=== PATIENT | female | born 1990 | race African-American/Black ===

== ENCOUNTER 2017-07-16 15:48 | Inpatient (IN) | payer MEDICAID ==
[2017-07-16] VITALS (57 sets, daily range): BP systolic 87–131; BP diastolic 50–88; PULSE 81–136; RESP 18–22; TEMP 98.1–98.6
[~2017-07-16] VITALS: Ht 172.7 cm; Wt 95.0 kg
[2017-07-16] MEDS ORDERED: PRENTAB7 (16:18)
--- NOTE | 2017-07-16 16:49 | PD ---
HPI Chief Complaint Elevated blood pressure, proteinuria Date Seen: Jul 16, 2017 Time Seen: 16:30 Travel History International Travel<30 Days: No Contact w/Intl Traveler<30Days: No Known Affected Area: No History of Present Illness HPI Patient is a 26-year-old at 38 weeks and 0 days who presents to the OB ED after being sent from Dr. Shaver office for elevated blood pressure and proteinuria. In Dr. Shaver office she had a systolic blood pressure in the 130s and "a lot" of protein in her urine. She reports that this has been uncomplicated without any elevated blood pressure and with only a few episodes of trace proteinuria. She reports that she is having occasional contractions. She reports that she does have some pink on the toilet paper when she wipes after going to the bathroom. She reports movement is at baseline. She denies any headache, blurry vision, nausea, vomiting, chest pain, shortness of breath, pain under her ribs. She reports that her feet are swelling slightly. She is GBS positive. History Past Medical History Medical History: Denies Significant Hx Obstetric History Obstetric History Patient reports that this is her first and it has been uncomplicated thus far. Per her records, her blood pressures have been normal throughout this and she has not had any protein in her urine until today when she had 3+ proteinuria and blood pressure of 136/78. She is GBS positive. Past Surgical History Surgical History: No Previous Surgery Family History Narrative Family History Her father has hypertension, heart disease, diabetes. Social History Narrative Social History Patient lives at home alone. She feels safe at home. Alcohol Use: No Tobacco Use: No Substance Abuse: No Allergies-Medications (Allergen,Severity, Reaction): Coded Allergies: No Known Allergies (Unverified , 07/16/17) Home Meds Reported Medications Pnv No.95/Ferrous Fum/Folic AC ( Vitamins Tablet) 28 Mg Iron-800 Mcg Tablet 07/16/17 Review of Systems General / Constitutional: No: Fever, Chills Eyes: No: Visual changes HENT: No: Headaches Cardiovascular: Edema (slight feet swelling), No: Chest Pain or Discomfort Respiratory: No: Short of Breath Gastrointestinal: No: Nausea, Vomiting, Abdominal Pain Genitourinary: No: Dysuria Musculoskeletal: Edema (slight feet swelling), No: Cramping, Pain Physical Exam Blood pressure 108/72, 120/68, 122/77 Pulse 115, 111, 136 Pain 0 out of 10 Narrative GENERAL: Well-nourished, well-developed patient. SKIN: Warm and dry. HEAD: Normocephalic and atraumatic. EYES: No scleral icterus. No injection or drainage. ENT: No nasal drainage noted. Mucous membranes pink. Airway patent. NECK: Supple, trachea midline. No JVD. CARDIOVASCULAR: Regular rate and rhythm without murmurs, gallops, or rubs. RESPIRATORY: Breath sounds equal bilaterally. No accessory muscle use. ABDOMEN/GI: Abdomen soft, non-tender, bowel sounds present, no rebound, no guarding Gravid to 38 weeks size GENITOURINARY: Exam performed by Dr. Barreto External Genitalia: Intact and normal in appearance Dilatation: 3-4 cm Effacement: 75-80% Station: -2 Uterine Contractions: About every minute, but irregularly FHT's: Category: Category 1 Baseline: 140 Reactive: Reactive Variability: Moderate Decels: none EXTREMITIES: No cyanosis or edema. BACK: Nontender without obvious deformity. No CVA tenderness. NEUROLOGICAL: Awake and alert. Motor and sensory grossly within normal limits. Five out of 5 muscle strength in all muscle groups. Normal speech. Data Data Vital Signs Reviewed: Yes Orders Orders Vital Signs (Adult) .ON ADMISSION (07/16/17 16:24) ^ Labor Status (07/16/17 16:24) Urinalysis - C+S If Indicated (07/16/17 16:24) ^ Non Stress Test (07/16/17 16:24) ^ Hydration (07/16/17 16:24) Cbc No Diff, Includes Plts (07/16/17 16:24) Comprehensive Metabolic Panel (07/16/17 16:24) Uric Acid (07/16/17 16:24) MDM Plan Patient is a 26-year-old at 38 weeks and 0 days who presents to the OB ED after being sent from Dr. Shaver office for elevated blood pressure and proteinuria. Per her records, her blood pressures have been normal throughout this and she has not had any protein in her urine until today when she had 3+ proteinuria and blood pressure of 136/78. She is GBS positive. Cervical exam: Dilatation: 3-4 cm, Effacement: 75-80%, Station: -2 1. Proteinuria in likely related to preeclampsia variant -Monitor vital signs -Monitor labor status/tocometry -Monitor heart tracing -CBC, CMP, uric acid, UA -Patient will likely need observation for 24 hour urine collection and/or possibly IV magnesium and induction of labor for preeclampsia d/w Dr. Barreto Diagnosis Diagnosis: Primary Impression: Proteinuria affecting in third trimester Additional Impression: preeclampsia variant Kevin Porter MD R2 Jul 16, 2017 16:49
[2017-07-16 17:40] LABS: BACTERIA, URINE FEW /hpf; BLOOD, URINE LARGE (NEG); GLUCOSE,URINE NEG (NEG); HEMATOCRIT 34.7 % (35.0-46.0); KETONE, URINE NEG (NEG); MEAN CELL VOLUME 68.4 FL (80.0-100.0); MEAN CORPUSCULAR HEMOGLOBIN 21.4 PG (27.0-34.0); MEAN CORPUSCULAR HGB CONC 31.2 % (32.0-36.0); MUCUS URINE MANY /lpf (OCC); NITRITE,URINE NEG (NEG); PLATELET COUNT 212 TH/MM3 (150-450); RED BLOOD COUNT 5.08 MIL/MM3 (4.00-5.30); RED CELL DISTRIBUTION WIDTH 18.9 % (11.6-17.2); TRANSITIONAL EPI CELLS, URINE 2 /hpf; WHITE BLOOD COUNT 8.3 TH/MM3 (4.0-11.0)
[2017-07-16 17:43] LABS: REVIEW FLAG FINAL
[2017-07-16] MEDS ORDERED: LIDOCAINE HCL 1% 50 ML VIAL INFIL PRN (17:45)
[2017-07-16] MEDS ORDERED: MINERAL OIL 10 ML VIAL TOPICAL PRN (17:45)
[2017-07-16] MEDS ORDERED: LIDOCAINE HCL 1% 50 ML VIAL I-DERMAL PRN (17:45)
[2017-07-16] MEDS ORDERED: OXYTOCIN 30 UNITS-500ML PREMIX 500 ML IV ONE (17:45)
[2017-07-16] MEDS ORDERED: LACTATED RINGER'S 1000 ML INJ 1,000 ML IV PRN (17:45)
[2017-07-16] MEDS ORDERED: SODIUM CHLORID 0.9% 500 ML INJ 500 ML OTHER PRN (17:45)
[2017-07-16] MEDS ORDERED: CITRIC ACID-SODIUM CITRATE LIQ 30 ML UDC PO SCH (17:45)
[2017-07-16 17:48] LABS: URINE COLOR LIGHT-RED (YELLW/STRAW)
[2017-07-16 17:49] LABS: COMMENT (UR) CATH-CULTURE IND; CULTURE IF INDICATED CATH CULTURE IND
[2017-07-16 17:58] LABS: ANION GAP 9 MEQ/L (5-15); AST (GOT) 20 U/L (15-37); BICARBONATE 21.6 MEQ/L (21.0-32.0); BLOOD UREA NITROGEN 10 MG/DL (7-18); CHLORIDE 105 MEQ/L (98-107); GLOMERULAR FILTRATION RATE 178 ML/MIN (>89); SODIUM (NA) 136 MEQ/L (136-145)
[2017-07-16] MEDS ORDERED: ONDANSETRON HCL 4 MG/2 ML VIAL IV PUSH PRN (18:00)
[2017-07-16] MEDS ORDERED: SODIUM CHLOR 0.9% 1000 ML INJ 1,000 ML OTHER PRN (18:00)
[2017-07-16] MEDS ORDERED: MAGNESIUM SULFATE 40 GM PREMIX 1,000 ML IV SCH (18:00)
[2017-07-16] MEDS ORDERED: PENICILLIN G POTASSIUM INJ 5,000,000 UNITS in SODIUM CHLORIDE 0.9% INJ 100 ML IV ONE (18:00)
[2017-07-16] MEDS ORDERED: LACTATED RINGER'S 1000 ML INJ 1,000 ML IV SCH (18:00)
[2017-07-16] MEDS ORDERED: MAGNESIUM SULFATE 4 GM PREMIX 100 ML IV ONE (18:00)
[2017-07-16 18:03] LABS: ALKALINE PHOSPHATASE 157 U/L (45-117); ALT (GPT) 16 U/L (10-53); TOTAL BILIRUBIN ADULT 0.2 MG/DL (0.2-1.0)
[2017-07-16] MEDS ORDERED: OXYTOCIN 30 UNITS-500ML PREMIX 500 ML IV SCH (19:45)
[2017-07-16] MEDS ORDERED: fentaNYL 2MCG-BUPIV 0.125% INJ 100 ML ONE (20:52)
[2017-07-16] MEDS ORDERED: NO SYSTEM NARCOTICS PRN (22:00)
[2017-07-16] MEDS ORDERED: fentaNYL 2MCG-BUPIV 0.125% 100 ML EPIDURAL SCH (22:00)
[2017-07-16] MEDS ORDERED: DO NOT ADMINISTER ANTICOAGULANTS PRN (22:00)
[2017-07-16] MEDS ORDERED: ePHEDrine/NS 25 MG/5 ML SYR IV PUSH PRN (22:00)
[2017-07-16] MEDS ORDERED: PENICILLIN G POTASSIUM INJ 2,500,000 UNITS in SODIUM CHLORIDE 0.9% INJ 100 ML IV SCH (22:00)
[2017-07-17] VITALS (41 sets, daily range): BP systolic 108–140; BP diastolic 61–89; PULSE 79–118; RESP 16–20; TEMP 97.2–98.9
[2017-07-17] MEDS ORDERED: MAGNESIUM SULFATE 40 GM PREMIX 1,000 ML IV SCH (03:40)
--- NOTE | 2017-07-17 03:40 | PD.OB.DELI ---
Weeks gestation: 38 Gest age assessed date: Jul 17, 2017 Gest age assessed time: 17:00 Pt started active labor?: Yes Active labor start date: Jul 17, 2017 Active labor start time: 19:30 Medical induction of labor?: No Artificial rupture of membrane: Yes Artificial ROM date: Jul 17, 2017 Artifical ROM time: 19:30 Anesthesia: Epidural Episiotomy: Midline Vaginal Delivery: Normal Presentation: Occiput anterior Nuchal Cord: x1 Delayed cord clamping (45 sec): Yes : Female Delivery date: Jul 17, 2017 Delivery time: 02:45 One Minute : 8 Five Minute : 9 Weight: 7/7 Placenta: Spontaneous delivery, Intact, 3 vessel cord Laceration: Episiotomy, 2 deg Repair: Vicryl running Estimated blood loss: 400 Additional Information Quick delivery of Alie. Great pusher. Nucal cord X1 but she pushed the baby out before reduction. Second degree repaired with 3-0 vicryl. The suture line tore when I evacuated the clots. Rerepaired and noted the vaginal mucosa was friable. Put several extra sutures in very carefully as not to tear the mucosa again EBL was 400cc Baby doing very well Gary Shaver MD Jul 17, 2017 03:40
[2017-07-17] MEDS ORDERED: ALUMINUM/MAGNESIUM/SIMETH 30 ML CUP PO PRN (03:45)
[2017-07-17] MEDS ORDERED: oxyCODONE/ACETAMINOPHEN 5 MG/325 MG TAB PO PRN (03:45)
[2017-07-17] MEDS ORDERED: WITCH HAZEL 50%/GLYCERIN 12.5% 40 PAD JAR TOPICAL PRN (03:45)
[2017-07-17] MEDS ORDERED: ONDANSETRON ODT 4 MG TAB PO PRN (03:45)
[2017-07-17] MEDS ORDERED: OXYTOCIN 30 UNITS-500ML PREMIX 500 ML IV SCH (03:45)
[2017-07-17] MEDS ORDERED: CALCIUM GLUCONATE 10% 1 GM/10 ML VIAL IV PUSH PRN (03:45)
[2017-07-17] MEDS ORDERED: OXYTOCIN 30 UNITS-500ML PREMIX 500 ML IV ONE (03:45)
[2017-07-17] MEDS ORDERED: ZOLPIDEM TARTRATE 5 MG TAB PO PRN (03:45)
[2017-07-17] MEDS ORDERED: ACETAMINOPHEN 325 MG TAB PO PRN (03:45)
[2017-07-17] MEDS ORDERED: BENZOCAINE 20% TOPICAL SPRAY 60 ML CAN TOPICAL PRN (03:45)
[2017-07-17] MEDS ORDERED: SODIUM CHLORIDE 0.9% FLUSH 10 ML FLUSH IV FLUSH PRN (03:45)
[2017-07-17] MEDS: IBUPROFEN 800 MG TAB PO PRN ×2 (04:39→16:09)
[2017-07-17] MEDS: SODIUM CHLORIDE 0.9% FLUSH 10 ML FLUSH IV FLUSH SCH (07:39)
[2017-07-17] MEDS: oxyCODONE/ACETAMINOPHEN 5 MG/325 MG TAB PO PRN ×2 (08:28→16:09)
--- NOTE | 2017-07-17 10:04 | HHI.OB ---
Subjective Post Day: 0 Objective Vitals/I&O Vital Signs Date Time Temp Pulse Resp B/P (MAP) Pulse Ox O2 Delivery O2 Flow Rate FiO2 07/17/17 08:00 90 119/79 (92) 07/17/17 07:53 19 07/17/17 07:00 104 130/86 (101) 07/17/17 06:30 18 07/17/17 06:29 99 116/72 (87) 07/17/17 06:07 93 112/68 (83) 07/17/17 05:43 16 07/17/17 05:30 92 114/89 (97) 07/17/17 05:00 116/78 (91) 07/17/17 05:00 83 07/17/17 04:51 98.9 20 07/17/17 04:31 103 07/17/17 04:31 114/75 (88) 07/17/17 04:17 124/73 (90) 07/17/17 04:17 95 07/17/17 04:01 91 07/17/17 04:01 131/68 (89) 07/17/17 04:00 20 07/17/17 03:47 113/67 (82) 07/17/17 03:47 90 07/17/17 03:30 137/83 (101) 07/17/17 03:15 99 129/76 (93) 07/17/17 03:09 20 07/17/17 03:00 104 133/80 (97) 07/17/17 02:30 106 114/81 (92) 07/17/17 02:23 20 07/17/17 02:15 122/68 (86) 07/17/17 02:15 111 07/17/17 02:04 18 07/17/17 02:00 108 123/74 (90) 07/17/17 01:45 108 16 124/82 (96) 07/17/17 01:30 111 128/71 (90) 07/17/17 01:15 98.5 07/17/17 01:15 118 120/72 (88) 07/17/17 01:15 16 07/17/17 01:00 125/76 (92) 07/17/17 01:00 113 07/17/17 00:45 106 120/72 (88) 07/17/17 00:45 18 07/17/17 00:30 107 125/80 (95) 07/17/17 00:15 107 127/85 (99) 07/17/17 00:15 98.7 07/17/17 00:15 16 07/17/17 00:00 100 115/78 (90) 07/16/17 23:45 110 126/85 (99) 07/16/17 23:45 18 07/16/17 23:30 103 130/80 (97) 07/16/17 23:17 124 91/79 (83) 07/16/17 23:15 18 07/16/17 23:00 100 108/72 (84) 07/16/17 22:45 98 111/69 (83) 07/16/17 22:30 96 111/73 (86) 07/16/17 22:17 18 07/16/17 22:15 81 114/77 (89) 07/16/17 22:01 95 100/54 (69) 07/16/17 21:57 18 07/16/17 21:45 98.5 07/16/17 21:45 103 114/61 (78) 07/16/17 21:36 115/62 (79) 07/16/17 21:36 89 07/16/17 21:27 121/61 (81) 07/16/17 21:27 92 07/16/17 21:26 18 07/16/17 21:24 123/65 (84) 07/16/17 21:24 92 07/16/17 21:21 121/57 (78) 07/16/17 21:19 118/66 (83) 07/16/17 21:15 96/63 (74) 07/16/17 21:15 22 07/16/17 21:10 95 07/16/17 21:08 22 07/16/17 20:31 119/82 (94) 07/16/17 20:27 20 07/16/17 20:25 98 07/16/17 20:15 131/78 (95) 07/16/17 20:10 96 07/16/17 20:05 94 07/16/17 20:00 84 07/16/17 20:00 91 130/65 (86) 07/16/17 19:55 90 07/16/17 19:50 90 07/16/17 19:45 89 07/16/17 19:45 95 125/83 (97) 07/16/17 19:30 97 118/78 (91) 07/16/17 19:30 96 07/16/17 19:25 95 07/16/17 19:22 18 07/16/17 19:20 92 07/16/17 19:16 89 119/80 (93) 07/16/17 19:15 92 07/16/17 19:10 94 07/16/17 19:05 98 07/16/17 19:01 92 122/77 (92) 07/16/17 19:00 93 07/16/17 18:55 97 07/16/17 18:55 88 130/88 (102) 07/16/17 18:50 97 121/81 (94) 07/16/17 18:50 97 07/16/17 18:45 98 117/81 (93) 07/16/17 18:45 99 07/16/17 18:40 101 119/73 (88) 07/16/17 18:40 100 07/16/17 18:35 93 121/81 (94) 07/16/17 18:35 107 07/16/17 18:33 102 114/69 (84) 07/16/17 18:30 100 07/16/17 18:30 18 07/16/17 18:30 98.6 07/16/17 18:25 97 07/16/17 18:21 105 118/72 (87) 07/16/17 17:45 105 117/87 (97) 07/16/17 17:30 101 117/75 (89) 07/16/17 17:15 94 118/76 (90) 07/16/17 17:10 106 114/80 (91) 07/16/17 17:01 113 87/50 (62) 07/16/17 16:57 103 113/62 (79) 07/16/17 16:30 98.1 18 07/16/17 16:30 136 122/77 (92) 07/16/17 16:25 111 120/68 (85) Objective Remarks GENERAL: Well-nourished, well-developed patient. CARDIOVASCULAR: Regular rate and rhythm without murmurs, gallops, or rubs. RESPIRATORY: Breath sounds equal bilaterally. No accessory muscle use. ABDOMEN/GI: Abdomen soft, non-tender. Fundus: Firm, non-tender at umbilicus. GENITOURINARY: Light to moderate bleeding. EXTREMITIES: No cyanosis or edema, non-tender, without signs of DVT. Medications and IVs Current Medications Medications (Trade) Dose Ordered Sig/Asher Route Start Time Stop Time Status Last Admin (NS Flush) 2 ml BID IV FLUSH 07/17/17 09:00 (NS Flush) 2 ml UNSCH PRN IV FLUSH 07/17/17 03:45 (Tylenol) 650 mg Q4H PRN PO 07/17/17 03:45 (Motrin) 800 mg Q8H PRN PO 07/17/17 03:45 07/17/17 04:39 (Percocet 5-325 Mg) 1 tab Q4H PRN PO 07/17/17 03:45 07/17/17 04:39 (Percocet 5-325 Mg) 2 tab Q4H PRN PO 07/17/17 03:45 07/17/17 08:28 (Americaine 20% Top Spr) 1 spray Q4H PRN TOPICAL 07/17/17 03:45 (Tucks Pads) 1 applic QID PRN TOPICAL 07/17/17 03:45 (Yumiko-Colace) 2 tab Q12H PRN PO 07/17/17 03:45 (Ambien) 5 mg HS PRN PO 07/17/17 03:45 (M-M-R Ii Inj) 0.5 ml ONCE ONCE SQ 07/17/17 16:00 07/17/17 16:01 (Boostrix Inj) 0.5 ml ONCE ONCE IM 07/17/17 16:00 07/17/17 16:01 (Mag-Al Plus Susp Liq) 15 ml Q8H PRN PO 07/17/17 03:45 (Zofran Odt) 4 mg Q6H PRN PO 07/17/17 03:45 Magnesium Sulfate 1,000 ml @ 50 mls/hr Q20H IV 07/17/17 03:40 (Calcium Gluconate Inj) 1 gm UNSCH PRN IV PUSH 07/17/17 03:45 Assessment/Plan Problem List: (1) Normal vaginal delivery ICD Codes: O80 - Encounter for full-term uncomplicated delivery (2) Proteinuria affecting in third trimester ICD Codes: O12.13 - Gestational proteinuria, third trimester Status: Acute Assessment and Plan pt delivered this am she is doing well c/o some pain in right butt cheek, pain medication encouraged will continue magnesium until 1530 will repeat labs in am routine care Discharge Planning consider dc in 1-2 days Jenny De Leon Jul 17, 2017 10:04
[2017-07-17] MEDS ORDERED: DIPHTH/TETANUS/ACEL PERTUSSIS (BOOSTER) 0.5 ML VIAL/PFS IM ONE (16:00)
[2017-07-17] MEDS ORDERED: MEASLES, MUMPS, RUBELLA VACCINE 0.5 ML VIAL SQ ONE (16:00)
[2017-07-17] MEDS: DOCUSATE SODIUM 50 MG/SENNA 8.6 MG TAB PO PRN (19:51)
[2017-07-18] VITALS: BP 107/68; PULSE 96; RESP 18; TEMP 98.4
[2017-07-18 04:00] VITALS: BP 114/59; PULSE 85; RESP 18; TEMP 98.1
[2017-07-18 05:52] LABS: HEMATOCRIT 22.9 % (35.0-46.0); MEAN CELL VOLUME 69.2 FL (80.0-100.0); MEAN CORPUSCULAR HEMOGLOBIN 21.8 PG (27.0-34.0); MEAN CORPUSCULAR HGB CONC 31.5 % (32.0-36.0); PLATELET COUNT 151 TH/MM3 (150-450); RED BLOOD COUNT 3.32 MIL/MM3 (4.00-5.30); RED CELL DISTRIBUTION WIDTH 19.2 % (11.6-17.2); REVIEW FLAG FINAL; WHITE BLOOD COUNT 12.9 TH/MM3 (4.0-11.0)
[2017-07-18 06:29] LABS: ALKALINE PHOSPHATASE 102 U/L (45-117); ALT (GPT) 19 U/L (10-53); AST (GOT) 23 U/L (15-37); INDIRECT BILIRUBIN 0.1 MG/DL (0.0-0.8); TOTAL BILIRUBIN ADULT 0.2 MG/DL (0.2-1.0); URIC ACID 4.8 MG/DL (2.6-6.0)
--- NOTE | 2017-07-18 08:57 | HHI.OB ---
Subjective Post Day: 1 Objective Vitals/I&O Vital Signs Date Time Temp Pulse Resp B/P (MAP) Pulse Ox O2 Delivery O2 Flow Rate FiO2 07/18/17 04:00 85 07/18/17 04:00 98.1 18 114/59 (77) 07/18/17 00:00 98.4 07/18/17 00:00 107/68 (81) 07/18/17 00:00 98.4 96 18 07/17/17 20:00 97.9 104 07/17/17 20:00 108 18 108/66 (80) 07/17/17 16:00 92 113/68 (83) 07/17/17 15:00 79 114/61 (78) 07/17/17 14:11 89 120/66 (84) 07/17/17 13:00 93 140/75 (96) 07/17/17 12:58 96 125/84 (98) 07/17/17 11:00 18 07/17/17 10:59 97.2 07/17/17 10:40 102 122/64 (83) Objective Remarks GENERAL: Well-nourished, well-developed patient. CARDIOVASCULAR: Regular rate and rhythm without murmurs, gallops, or rubs. RESPIRATORY: Breath sounds equal bilaterally. No accessory muscle use. ABDOMEN/GI: Abdomen soft, non-tender. Fundus: Firm, non-tender at umbilicus. GENITOURINARY: Light to moderate bleeding. EXTREMITIES: No cyanosis or edema, non-tender, without signs of DVT. Medications and IVs Current Medications Medications (Trade) Dose Ordered Sig/Asher Route Start Time Stop Time Status Last Admin (NS Flush) 2 ml BID IV FLUSH 07/17/17 09:00 (NS Flush) 2 ml UNSCH PRN IV FLUSH 07/17/17 03:45 (Tylenol) 650 mg Q4H PRN PO 07/17/17 03:45 (Motrin) 800 mg Q8H PRN PO 07/17/17 03:45 07/17/17 16:09 (Percocet 5-325 Mg) 1 tab Q4H PRN PO 07/17/17 03:45 07/17/17 04:39 (Percocet 5-325 Mg) 2 tab Q4H PRN PO 07/17/17 03:45 07/17/17 16:09 (Americaine 20% Top Spr) 1 spray Q4H PRN TOPICAL 07/17/17 03:45 07/17/17 19:51 (Tucks Pads) 1 applic QID PRN TOPICAL 07/17/17 03:45 07/17/17 19:51 (Yumiko-Colace) 2 tab Q12H PRN PO 07/17/17 03:45 07/17/17 19:51 (Ambien) 5 mg HS PRN PO 07/17/17 03:45 (Mag-Al Plus Susp Liq) 15 ml Q8H PRN PO 07/17/17 03:45 (Zofran Odt) 4 mg Q6H PRN PO 07/17/17 03:45 Magnesium Sulfate 1,000 ml @ 50 mls/hr Q20H IV 07/17/17 03:40 07/17/17 14:09 (Calcium Gluconate Inj) 1 gm UNSCH PRN IV PUSH 07/17/17 03:45 Assessment/Plan Problem List: (1) Normal vaginal delivery ICD Codes: O80 - Encounter for full-term uncomplicated delivery (2) Proteinuria affecting in third trimester ICD Codes: O12.13 - Gestational proteinuria, third trimester Status: Acute (3) Anemia ICD Codes: D64.9 - Anemia, unspecified Assessment and Plan Post delivery day 1 she is doing well pain well managed with oral buckley medication hgb 7.9, vss, pt denies SOB, dizziness, chest pain with ambulation LFT remain normal discussed iv venofer x 2 doses and bonding well with infant routine care Discharge Planning consider dc tomorrow after second dose of Venofer Attending Attestation discussed plan with dr Ospina who is coming today Jenny De Leon Jul 18, 2017 08:57
[2017-07-18 09:00] VITALS: BP 108/71; PULSE 99; RESP 20; TEMP 97.7; O2SAT 100
--- NOTE | 2017-07-18 09:07 | HHI.DCPOC ---
Discharge Care Plan Diagnosis: (1) Normal vaginal delivery (2) Anemia Your Health Problems Are: Vaginal delivery Report Symptoms to Your Doctor -Temperature above 100.5 degrees -Redness, of incision or excessive or foul smelling drainage -Unusual pain or calf pain -Increased vaginal bleeding -Painful or difficulty urinating -Feelings of extreme sadness or anxiety after 2 weeks Goals to Promote Your Health * To prevent worsening of your condition and complications * To maintain your health at the optimal level Directions to Meet Your Goals Take your medications as prescribed Follow your dietary instruction Follow activity as directed Ensure plenty of rest for recovery Drink fluids for hydration Keep your appointments as scheduled Take your immunizations and boosters as scheduled If your symptoms worsen call your PCP, if no PCP go to Urgent Care Center or Emergency Room Smoking is Dangerous to Your Health. Avoid second hand smoke Call the 24-hour crisis hotline for domestic abuse at Jenny De Leon Jul 18, 2017 09:07
[2017-07-18] MEDS: IRON SUCROSE INJ 200 MG in SODIUM CHLORIDE 0.9% INJ 100 ML IV SCH (10:00)
[2017-07-18] MEDS: DOCUSATE SODIUM 50 MG/SENNA 8.6 MG TAB PO PRN ×2 (12:16→23:04)
[2017-07-18] MEDS ORDERED: IBUP-232 PO (18:35)
[2017-07-18 20:00] VITALS: BP 106/64; PULSE 117; RESP 20; TEMP 98.7; O2SAT 100
[2017-07-18] MEDS: SODIUM CHLORIDE 0.9% FLUSH 10 ML FLUSH IV FLUSH SCH (23:04)
[2017-07-18] MEDS: IBUPROFEN 800 MG TAB PO PRN (23:05)
[2017-07-19 05:32] LABS: HEMATOCRIT 23.7 % (35.0-46.0); MEAN CELL VOLUME 68.9 FL (80.0-100.0); MEAN CORPUSCULAR HEMOGLOBIN 21.8 PG (27.0-34.0); MEAN CORPUSCULAR HGB CONC 31.7 % (32.0-36.0); PLATELET COUNT 169 TH/MM3 (150-450); RED BLOOD COUNT 3.44 MIL/MM3 (4.00-5.30); RED CELL DISTRIBUTION WIDTH 19.5 % (11.6-17.2); REVIEW FLAG FINAL; WHITE BLOOD COUNT 10.9 TH/MM3 (4.0-11.0)
--- NOTE | 2017-07-19 07:18 | HHI.OB ---
Subjective Post Day: 2 Remarks Doing well, ventilating last cycle, denies dizziness, shortness of breath, Objective Vitals/I&O Vital Signs Date Time Temp Pulse Resp B/P (MAP) Pulse Ox O2 Delivery O2 Flow Rate FiO2 07/18/17 20:00 98.7 20 100 07/18/17 20:00 117 106/64 (78) 07/18/17 09:00 97.7 99 20 108/71 (83) 100 Objective Remarks GENERAL: Well-nourished, well-developed patient. CARDIOVASCULAR: Regular rate and rhythm without murmurs, gallops, or rubs. RESPIRATORY: Breath sounds equal bilaterally. No accessory muscle use. ABDOMEN/GI: Abdomen soft, non-tender. Fundus: Firm, non-tender at umbilicus. GENITOURINARY: Light to moderate bleeding. EXTREMITIES: No cyanosis or edema, non-tender, without signs of DVT. Medications and IVs Current Medications Medications (Trade) Dose Ordered Sig/Asher Route Start Time Stop Time Status Last Admin (NS Flush) 2 ml BID IV FLUSH 07/17/17 09:00 07/18/17 23:04 (NS Flush) 2 ml UNSCH PRN IV FLUSH 07/17/17 03:45 (Tylenol) 650 mg Q4H PRN PO 07/17/17 03:45 (Motrin) 800 mg Q8H PRN PO 07/17/17 03:45 07/18/17 23:05 (Percocet 5-325 Mg) 1 tab Q4H PRN PO 07/17/17 03:45 07/17/17 04:39 (Percocet 5-325 Mg) 2 tab Q4H PRN PO 07/17/17 03:45 07/17/17 16:09 (Americaine 20% Top Spr) 1 spray Q4H PRN TOPICAL 07/17/17 03:45 07/17/17 19:51 (Tucks Pads) 1 applic QID PRN TOPICAL 07/17/17 03:45 07/17/17 19:51 (Yumiko-Colace) 2 tab Q12H PRN PO 07/17/17 03:45 07/18/17 23:04 (Ambien) 5 mg HS PRN PO 07/17/17 03:45 (Mag-Al Plus Susp Liq) 15 ml Q8H PRN PO 07/17/17 03:45 (Zofran Odt) 4 mg Q6H PRN PO 07/17/17 03:45 Magnesium Sulfate 1,000 ml @ 50 mls/hr Q20H IV 07/17/17 03:40 07/17/17 14:09 (Calcium Gluconate Inj) 1 gm UNSCH PRN IV PUSH 07/17/17 03:45 Iron Sucrose 200 mg/Sodium Chloride 110 ml @ 110 mls/hr DAILY IV 07/18/17 10:00 07/19/17 09:59 07/18/17 10:00 Assessment/Plan Problem List: (1) Normal vaginal delivery ICD Codes: O80 - Encounter for full-term uncomplicated delivery (2) Anemia ICD Codes: D64.9 - Anemia, unspecified Assessment and Plan Post delivery day 2 she is doing well, meeting milestones, discharged home today, pain well managed with oral buckley medication hgb 7.9, vss, pt denies SOB, dizziness, chest pain with ambulation, status post IV iron. discussed iv venofer x 2 doses and bonding well with Discharge Planning consider dc tomorrow after second dose of Venofer Neymar Ospina MD Jul 19, 2017 07:18
[2017-07-19 08:00] VITALS: BP 137/71; PULSE 90; RESP 20; TEMP 98.3; O2SAT 98
[2017-07-19] MEDS: IRON SUCROSE INJ 200 MG in SODIUM CHLORIDE 0.9% INJ 100 ML IV SCH (09:26)
[2017-07-19 11:51] VITALS: BP 97/56; PULSE 114; RESP 20; TEMP 99.2
== END 2017-07-19 13:52 | disposition home or self-care (01) | DRG 775 ==
LOC: HOBED 15:48 → H2EA 18:03 → H2EB 18:07 → H2EA 07-17 06:23 → H1EA 07-17 19:39
PROVIDERS: ADMIT Obstetrics & Gynecology; ATTEND Obstetrics & Gynecology
PROC: 10E0XZZ Delivery of Products of Conception, External Approach (ICD-10-PCS; principal; 2017-07-17)
PROC: 0KQM0ZZ Repair Perineum Muscle, Open Approach (ICD-10-PCS; 2017-07-17)
PROC: 10907ZC Drainage of Amniotic Fluid, Therapeutic from Products of Conception, Via Natural or Artificial Opening (ICD-10-PCS; 2017-07-17)
PROC: 0W8NXZZ Division of Female Perineum, External Approach (ICD-10-PCS; 2017-07-17)
DX: O14.94 Unspecified pre-eclampsia, complicating childbirth (principal); D64.9 Anemia, unspecified; O99.824 Streptococcus B carrier state complicating childbirth; O69.81X0 Labor and delivery complicated by cord around neck, without compression, not applicable or unspecified; O70.1 Second degree perineal laceration during delivery; O12.14 Gestational proteinuria, complicating childbirth; O99.02 Anemia complicating childbirth; Z3A.38 38 weeks gestation of pregnancy; Z37.0 Single live birth
CPT/HCPCS: 59025; 80053; 80076; 80307; 81001; 84550; 85027; 86850; 86900; 86901; 87086; 88307; 90715; J1756; J2540; J2590; J3475; J7120; P9612